=== PATIENT | female | born 1955 ===

== ENCOUNTER 2018-09-10 10:21 | Day surgery (SDC) | payer MEDICAID ==
[2018-09-04 08:47] VITALS: BMI 23.6
[2018-09-10] MEDS ORDERED: Iodixanol 320 MG/ML 200 ML BOTTLE IV ONE (11:34)
[2018-09-10] MEDS ORDERED: Lidocaine 2% MPF (5 ml) Inj ONE (11:34)
[2018-09-10] MEDS ORDERED: Midazolam 2 MG/2 ML VIAL ONE (11:56)
[2018-09-10] MEDS ORDERED: Iodixanol 320 MG/ML 100 ML BOTTLE IV ONE (11:58)
[2018-09-10] MEDS ORDERED: Verapamil 2 ML ONE (13:11)
[2018-09-10] MEDS ORDERED: Sodium Chloride 0.9% 1,000 ML IV SCH (13:30)
--- NOTE | 2018-09-11 14:21 | VAS ---
DATE: 09/10/2018 INDICATION: Ms. Perry is a 63-year-old female with past medical history is significant for hypertension, peripheral vascular disease status post atherectomy, angioplasty, CAD status post recent coronary catheterization, who was brought to the maintenance shop laborer for evaluation of symptoms of claudication, abnormal CTA, which was done for screening of peripheral vascular disease. PROCEDURES PERFORMED: 1. Distal abdominal aortogram with bilateral iliac runoff. 2. Selective bilateral iliofemoral angiogram with runoff, arterectomy, [employer] A[employer] of left SFA, moderate 65% stenosis with use of LS atherectomy device, additional balloon angioplasty with 5.0 x 200 drug-coated balloon, regeneration angiographic stenosis from 70% down to 0% YOHANNES 3 flow. The patient had gradients across the lesion and the SFA was 40 mmHg at rest and posttreatment gradients were less than 5 mmHg. ANGIOGRAPHIC FINDINGS: Right lower extremity, right common iliac, and external iliac patent. Profunda femoris is patent. SFA has a nonobstructive 40% stenosis. Recent SFA has a nonobstructive 45% stenosis. Popliteal artery is patent with 1-2 vessel runoff below the knee, left lower extremity common iliac artery, external iliac artery patent. There is a stent in the common iliac artery which is widely patent. Profunda femoris patent. SFA is a proximal 40% stenosis, mid segment had a 70% stenosis and lesser segment 55 to 60% stenosis. Two vessels are noted below the anterior tibial artery and posterior tibial artery. TECHNIQUES OF INTERVENTION: After reviewing the above angiographic findings, decided to further evaluate the severe lesion with pressure gradients, 0.038 Landis catheter was advanced described to the left popliteal artery. Pressure gradients were calculated. Subsequently, pullback gradient was noted. There was a 40 mm gradient noted from the popliteal up to the mid SFA. At this point, segment of the popliteal artery. Subsequently, an LS atherectomy device was done and atherectomy of the SFA was extended from the mid to the distal segment, subsequently after three passes. Additional balloon angioplasty with a drug-coated balloon was stenosis. Final angiogram does show regeneration down to 0% YOHANNES 3 flow. IMPRESSION: Successful peripheral arterial disease atherectomy of left superficial femoral artery with the use of LS atherectomy device, suggestion of balloon angioplasty with a 5.0 x 200 drug-coated balloon. 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 We recommend to take rest and we titrate the medication and keep the patient on high-dose statins, fish oil . Thank you Dr. Buchanan for allowing me to participate in the care of your patient. Armando Stoner MD cc: Ryan Buchanan MD
== END 2018-09-10 21:04 | disposition home or self-care (01) ==
LOC: C.SPRAD 10:21
PROVIDERS: ATTEND Internal Medicine Interventional Cardiology
DX: I73.9 Peripheral vascular disease, unspecified (principal); I25.10 Atherosclerotic heart disease of native coronary artery without angina pectoris; I10 Essential (primary) hypertension
CPT/HCPCS: 37227; 82948; J1644; J2250; J3010; J7030; Q9966; Q9967